=== PATIENT | male | born 1995 | race Caucasian/White ===

== ENCOUNTER 2022-10-30 06:40 | Day surgery (SDC) | payer OTHER ==
[~2022-10-30] VITALS: Ht 167.6 cm; Wt 109.0 kg
[2022-10-30] MEDS ORDERED: LIDOCAINE/PF 2% 5 ML VIAL IM ONE (06:41)
[2022-10-30] MEDS ORDERED: SUCCINYLCHOLINE CHLORIDE 20 MG/ML 10 ML VIAL IVP ONE (06:41)
[2022-10-30] MEDS ORDERED: MIDAZOLAM HCL 2 MG/2 ML VIAL IVP ONE (06:41)
[2022-10-30] MEDS ORDERED: FentaNYL CITRATE PF 100 MCG/2 ML VIAL IVP ONE (06:41)
[2022-10-30] MEDS ORDERED: ONDANSETRON HCL 4 MG/2 ML VIAL IVP ONE (06:41)
[2022-10-30] MEDS ORDERED: PROPOFOL 1% 20 ML VIAL IVP ONE (06:41)
[2022-10-30] MEDS ORDERED: RINGERS SOLUTION,LACTATED 1,000 ML IV ONE ×2 (07:00→09:12)
[2022-10-30 07:41] LABS: COVID AG,FIA SOURCE NASOPHARYNGEAL
[2022-10-30] MEDS ORDERED: CLON0.1T2 PO (07:45)
[2022-10-30] MEDS ORDERED: LAMO150T6 PO (07:45)
[2022-10-30] MEDS ORDERED: OLAN5TAB52 PO (07:45)
[2022-10-30] MEDS ORDERED: AMPICILLIN SODIUM 2 GM/NS 100 ML IV ONE (08:41)
[2022-10-30] MEDS ORDERED: MIDAZOLAM HCL 5 MG/ML VIAL ONE (11:12)
[2022-10-30 11:51] LABS: BAND NEUTROPHILS % (MANUAL) 0 % (0-5)
[2022-10-30 11:53] LABS: HEMATOCRIT 45.8 % (41-53); HEMOGLOBIN 15.9 g/dL (13.5-17.5); MEAN CORPUSCULAR HEMOGLOBIN 28.6 pg (26.0-34.0); MEAN CORPUSCULAR HGB CONC 34.8 G/dL (31.0-37.0); MEAN CORPUSCULAR VOLUME 82 fL (80-100); PLATELET COUNT (AUTO) 298 K/uL (150-450); RED BLOOD CELL COUNT(AUTO) 5.57 MIL/uL (4.50-5.90); RED CELL DISTRIBUTION WIDTH 12.7 % (11.5-14.5)
[2022-10-30 12:05] LABS: ANION GAP 9 mmol/L (8-16); CALCIUM, TOTAL 9.5 mg/dL (8.8-10.5); CARBON DIOXIDE 26 mmol/L (22-29); CHLORIDE 98 mmol/L (98-107); CREATININE 0.69 mg/dL (0.60-1.30); GLOMERULAR FILTR. RATE CALC > 60 mL/min (>60); GLUCOSE,RANDOM 341 mg/dL (70-110); POTASSIUM 4.2 mmol/L (3.5-5.1); SODIUM SERUM 133 mmol/L (136-145); UREA NITROGEN, BLOOD 9 mg/dL (7-18)
[2022-10-30 12:07] LABS: PROTHROMBIN TIME 10.9 SEC (9.4-11.6)
[2022-10-30 12:10] LABS: BASOPHILS % (MANUAL) 1 % (0-2); LYMPHOCYTES % (MANUAL) 20 % (22-44); MONOCYTES % (MANUAL) 7 % (2-9); SEGMENTED NEUTROPHILS % 72 % (40-70)
[2022-10-30 12:11] LABS: ALANINE AMINOTRANSFERASE 69 U/L (12-78); ALBUMIN 4.1 g/dL (3.4-5.0); ALKALINE PHOSPHATASE 105 U/L (46-116); ASPARTATE AMINOTRANSFERASE 39 U/L (15-37); BILIRUBIN,TOTAL 0.6 mg/dL (0.1-1.0)
[2022-10-30 12:12] LABS: HEMOGLOBIN A1C 13.5 % (3.8-5.6)
== END 2022-10-30 14:10 | disposition home or self-care (01) ==
LOC: SURGERY 06:40
PROVIDERS: ATTEND Dentist General Practice
DX: K05.30 Chronic periodontitis, unspecified (principal); K02.9 Dental caries, unspecified; Z79.01 Long term (current) use of anticoagulants; Z79.899 Other long term (current) drug therapy; Z20.822 Contact with and (suspected) exposure to COVID-19; K21.9 Gastro-esophageal reflux disease without esophagitis; E66.9 Obesity, unspecified; F41.9 Anxiety disorder, unspecified; Z98.890 Other specified postprocedural states; F84.0 Autistic disorder
CPT/HCPCS: 41899; 71045; 87426; 80053; 83036; 85007; 85027; 85610; 85730; 36415; J0290; J2704; J3010; J3490; J2250 ×2; J2405; J0330; J7120; C9803